=== PATIENT | female | born 1950 | race Caucasian/White ===

== ENCOUNTER → 2020-03-24 15:27 | Outpatient (REF) | payer OTHER, SELFPAY | LOC: NCHCN 15:27 | PROVIDERS: PCP Nurse Practitioner Family; Visit Provider Family Medicine | DX: L08.9 Local infection of the skin and subcutaneous tissue, unspecified (principal) | CPT/HCPCS: 87077; 87070; 87186; 87205 ==

== ENCOUNTER 2020-04-12 16:54 | Outpatient (REF) | payer OTHER, SELFPAY | END 2020-04-12 17:14 | LOC: NCHCN 16:54 | PROVIDERS: PCP Nurse Practitioner Family; Visit Provider Nurse Practitioner Family | DX: R69 Illness, unspecified (principal) ==

== ENCOUNTER 2020-04-13 15:42 | Outpatient (REF) | payer OTHER, SELFPAY ==
[2020-04-14 15:40] LABS: COVID-19 RT-PCR Result NEGATIVE (Negative)
== END 2020-04-13 16:02 ==
LOC: NCHCN 15:42
PROVIDERS: PCP Nurse Practitioner Family; Visit Provider Nurse Practitioner Family
DX: Z11.59 Encounter for screening for other viral diseases (principal)
CPT/HCPCS: U0003

== ENCOUNTER 2021-05-04 16:10 | Outpatient (REF) | payer MEDICARE, SELFPAY ==
[2021-05-04 21:01] LABS: Anion Gap 10.3 mmol/L (3-11); BUN 18 mg/dL (7-18); CO2 27.7 mmol/L (21.0-32.0); CREATININE 0.8 mg/dL (0.55-1.02); Calcium 9.7 mg/dL (8.5-10.1); Chloride 104 mmol/L (98-107); Glucose 105 mg/dL (74-106); Potassium 4.1 mmol/L (3.5-5.1); Sodium 142 mmol/L (136-145)
== END 2021-05-04 16:11 | disposition home or self-care (01) ==
LOC: NCHCN 16:10
PROVIDERS: PCP Nurse Practitioner Family; Visit Provider Family Medicine
DX: G90.511 Complex regional pain syndrome I of right upper limb (principal); M85.88 Other specified disorders of bone density and structure, other site
CPT/HCPCS: 80048

== ENCOUNTER 2021-12-14 09:51 | Outpatient (REF) | payer MEDICARE, SELFPAY ==
--- OUTSIDE RECORDS SUMMARY | 2021-12-14 09:57 | XMS_ITS | CCD ---
:1950 Author Care Team Providers Name Role Phone Nika WALLIS Attending Physician Unavailable Vital Signs Unknown or Not Available. Allergies Unknown or Not Available. Procedures Unknown or Not Available. History of Immunizations Unknown or Not Available. Problems Unknown or Not Available. Results Unknown or Not Available. Active Medications Unknown or Not Available. Medications Administered During Visit Unknown or Not Available. Encounters Encounter Diagnosis Diagnosis Code Start Date Imaging of musculoskeletal system abnormal [id number] 10/09/2021 Social History Smoking Status Code Start Date End Date Never smoker [id number] Patient Decision Aids Unknown or Not Available. Discharge Instructions You were admitted to [facility] on 10/09/2021 14:20 with a principal diagnosis of Abnormal findings on diagno stic imaging of other parts of musculoskeletal system You were discharged from [facility] on 10/09/2021 14:20 Should you have any questions prior to d ischarge, please contact a member of your healthcare team. If you have left the ho spital and have any questions, please contact your primary care physician. Chief Complaint and Reason For Visit Unknown or Not Available. Function Status Unknown or Not Available. Plan of Care Unknown or Not Available. Referral/Transition of Care Unknown or Not Available.
== END 2021-12-14 09:52 | disposition home or self-care (01) ==
LOC: NCHCN 09:51
PROVIDERS: PCP Nurse Practitioner Family; Visit Provider Registered Nurse
DX: L02.11 Cutaneous abscess of neck (principal)
CPT/HCPCS: 87077; 87070; 87186; 87205

== ENCOUNTER 2023-11-17 16:15 | Outpatient (REF) | payer MEDICARE, OTHER, SELFPAY ==
--- OUTSIDE RECORDS SUMMARY | 2023-11-17 16:17 | XMS_ITS | CCD ---
Author Name Unknown Address [address] [place] [address] [id number] Organization Unknown Address [address] [place] [address] [phone] Care Team Providers Care Transitional Living Specialist Name Role Phone CYNTHIA CLARKE Attending Physician [phone] CYNTHIA CLARKE Rounding (Secondary) Physician [phone] Vital Signs Unknown or Not Available. Allergies Unknown or Not Available. Procedures Unknown or Not Available. History of Immunizations Unknown or Not Available. Problems Unknown or Not Available. Results [facility] CULTURE/SMEAR FUNGUS SK IN HAIR NAIL - Collect Date/Time: 04/14/2023 09:52 Test Name Code Test Result Test Units Test Ref Rang e Fungus Smear No Fungi Seen N/A Result No agents of yovana matomycosis isolated N/A Active Medications Unknown or Not Available. Medications Administered During Visit Unknown or Not Available. Encounters Encounter Diagnosis Diagnosis Code Start Date Metatarsalgia, left foot [id number] Social History Smoking Status Code Start Date End Date Never smoker [id number] Patient Decision Aids Unknown or Not Available. Discharge Instructions You were admitted to on 04/14/2023 00:00 with a principal diagnosis of Metatarsalgia, left foot You had the following tests done:[facility] CULTURE/SMEAR FUNGUS SKIN HAIR NAIL You were discharged from on 04/14/2023 00:00 Should you have any questions prior to discharge, please contact a member of your healthcare team. If you have left the hospital and have any questions, please contact your primary care physician. Chief Complaint and Reason For Visit Unknown or Not Available. Function Status Unknown or Not Available. Plan of Care Unknown or Not Available. Referral/Transition of Care Unknown or Not Available.
--- OUTSIDE RECORDS SUMMARY | 2023-11-17 16:17 | XMS_ITS | CCD ---
Author Name Unknown Address [address] [place] [address] [phone] Organization Unknown Address [address] [place] [address] [phone] Care Team Providers Care Sports Book Board Attendant Name Role Phone BALWINDER WALLIS Attending Physician [phone] Vital Signs Unknown or Not Available. Allergies Unknown or Not Available. Procedures Unknown or Not Available. History of Immunizations Unknown or Not Available. Problems Unknown or Not Available. Results Unknown or Not Available. Active Medications Unknown or Not Available. Medications Administered During Visit Unknown or Not Available. Encounters Encounter Diagnosis Diagnosis Code Start Date Imaging of musculoskeletal system abnormal [id number] 10/09/2021 Social History Smoking Status Code Start Date End Date Never smoker [id number] Patient Decision Aids Unknown or Not Available. Discharge Instructions You were admitted to [facility] on 10/09/2021 14:20 with a principal diagnosis of Abnormal findings on diagnostic imaging of other parts of musculoskeletal system You were discharged from [facility] on 10/09/2021 14:20 Should you have [...]
[2023-11-17 22:29] LABS: Anion Gap 6.8 mmol/L (3-11); BUN 15 mg/dL (7-18); CO2 30.2 mmol/L (21.0-32.0); CREATININE 0.8 mg/dL (0.55-1.02); Calcium 9.9 mg/dL (8.5-10.1); Calculated LDL 121 mg/dL (<100); Chloride 103 mmol/L (98-107); Cholesterol 238 mg/dL (<200); Estimated GFR 78.72 (mL/min/1.73m2); Glucose 100 mg/dL (74-106); HDL Cholesterol 57 mg/dL (40-60); Potassium 3.8 mmol/L (3.5-5.1); Sodium 140 mmol/L (136-145); Triglyceride 303 mg/dL (<150)
== END 2023-11-17 16:16 | disposition home or self-care (01) ==
LOC: NCHCN 16:15
PROVIDERS: PCP Nurse Practitioner Family; Visit Provider Family Medicine
DX: I10 Essential (primary) hypertension (principal)
CPT/HCPCS: 80048; 80061

== ENCOUNTER 2025-04-27 14:10 | Outpatient (REF) | payer MEDICARE, OTHER, SELFPAY ==
[2025-04-27 21:35] LABS: Anion Gap 6.4 mmol/L (3-11); BUN 15 mg/dL (7-18); CO2 30.6 mmol/L (21.0-32.0); CREATININE 0.8 mg/dL (0.55-1.02); Calcium 9.8 mg/dL (8.5-10.1); Chloride 103 mmol/L (98-107); Estimated GFR 78.24 (mL/min/1.73m2); Glucose 98 mg/dL (74-106); Potassium 4.2 mmol/L (3.5-5.1); Sodium 140 mmol/L (136-145)
== END 2025-04-27 14:11 | disposition home or self-care (01) ==
LOC: NCHCN 14:10
PROVIDERS: PCP Nurse Practitioner Family; Visit Provider Family Medicine
DX: I10 Essential (primary) hypertension (principal)
CPT/HCPCS: 80048